=== PATIENT | female | born 1965 | race African-American/Black ===

== ENCOUNTER 2016-06-18 15:04 | Emergency (ER) | payer OTHER ==
[~2016-06-18] VITALS: Ht 177.8 cm; Wt 80.0 kg
[2016-06-18] MEDS ORDERED: ALBUTEROL 0.5% (NEB) 2.5 MG/0.5 ML AMP HHN STA (15:07)
[2016-06-18] MEDS ORDERED: CEFTRIAXONE 1 GM/50 ML (PMX) 50 ML IVPB STA (15:07)
[2016-06-18 15:11] VITALS: Ht 177.8 cm; Wt 80.0 kg
[2016-06-18] MEDS ORDERED: IPRATROPIUM (NEB) 0.5 MG/2.5 ML AMP HHN ONE (15:30)
[2016-06-18 15:46] LABS: HEMATOCRIT 35.1 % (37.0-47.0); HEMOGLOBIN 11.9 g/dl (12.0-16.0); MEAN CORPUSCULAR HEMOGLOBIN 31.9 pg (29.0-33.0); MEAN CORPUSCULAR HGB CONC 33.8 g/dl (32.0-37.0); MEAN CORPUSCULAR VOLUME 94.4 fl (82.0-101.0); MEAN PLATELET VOLUME 8.3 fl (7.4-10.4); PLATELET COUNT 288 10^3/UL (140-440); RED BLOOD COUNT 3.72 10^6/ul (4.20-5.40); RED CELL DISTRIBUTION WIDTH 14.1 % (11.5-14.5); UNCORRECTED WBC 4.3 10^3/ul (4.8-10.8); WHITE BLOOD COUNT 4.3 10^3/ul (4.8-10.8)
--- NOTE | 2016-06-18 15:46 | RADRPT ---
PROCEDURE: XR Chest. CLINICAL INDICATION: Chest pain TECHNIQUE: AP view of the chest was performed. COMPARISON: None. FINDINGS: Increased interstitial markings in the bilateral lung bases without evidence for focal consolidation . The lung volumes are normal. The heart size is normal. There are chronic fractures of the left inferior posterior ribs with bridging callous formation. The osseous structures are otherwise intact . IMPRESSION: Increased interstitial markings in the bilateral lung bases. Chronic fractures of the left posterior ribs, inferiorly RPTAT: QQ .Maya Sam MD, Date Time Electronically viewed and signed by .Maya Sam MD, on 06/18/2016 15:46 .M/
[2016-06-18 15:54] LABS: CHLORIDE 107 mmol/L (97-110)
[2016-06-18 15:55] LABS: POTASSIUM 4.4 mmol/L (3.5-5.1); SODIUM 147 mmol/L (135-144)
[2016-06-18 15:56] LABS: CONDITION 1
[2016-06-18 15:57] LABS: ALBUMIN/GLOBULIN RATIO 0.95; ANION GAP 18 (8-16); ASPARTATE AMINO TRANSFERASE 31 IU/L (15-46); BILIRUBIN,INDIRECT 0.1 mg/dl (0-1.1); BILIRUBIN,TOTAL 0.1 mg/dl (0.2-1.3); BLOOD UREA NITROGEN 25 mg/dl (7-20); CARBON DIOXIDE 26 mmol/L (21-31); CREATININE 0.73 mg/dl (0.44-1.00); TOTAL PROTEIN 8.2 g/dl (6.1-8.1)
[2016-06-18 15:58] LABS: ALANINE AMINOTRANSFERASE 22 IU/L (13-69); ALKALINE PHOSPHATASE 72 IU/L (42-121); CALCIUM 8.9 mg/dl (8.4-10.2); GLUCOSE 91 mg/dl (70-220)
[2016-06-18 16:10] LABS: TROPONIN-I < 0.012 ng/ml (0.00-0.12)
[2016-06-18 16:18] LABS: EOSINOPHILS # 0.1 10^3/ul (0.0-0.5); LYMPHOCYTES # 1.7 10^3/ul (0.8-2.9); MONOCYTE # 0.5 10^3/ul (0.3-0.9); NEUTROPHIL # 1.9 10^3/ul (1.6-7.5)
[2016-06-18 16:32] LABS: INR 0.93; PROTIME 12.5 Sec (12.2-14.2)
[2016-06-18 16:33] LABS: PARTIAL THROMBOPLASTIN TIME 39.1 Sec (25.0-35.0)
[2016-06-18] MEDS ORDERED: ASPI-664 PO (16:49)
[2016-06-18] MEDS ORDERED: NAPR-260 PO (16:50)
[2016-06-18] MEDS ORDERED: TRAM-40 PO (16:51)
[2016-06-18] MEDS ORDERED: HYDR-906 PO (16:51)
[2016-06-18] MEDS ORDERED: CARB400T PO (16:52)
[2016-06-18] MEDS ORDERED: GABA300C16 PO (16:52)
[2016-06-18] MEDS ORDERED: ALBU18HF INHALATION (17:18)
[2016-06-18] MEDS ORDERED: FLUC150T41 PO (17:18)
[2016-06-18] MEDS ORDERED: LEVO500T72 PO (17:18)
[2016-06-18] MEDS ORDERED: TRAM50TA2 PO (17:18)
[2016-06-18] MEDS ORDERED: UDROBDM PO (17:18)
[2016-06-18] MEDS ORDERED: FLUCONAZOLE 150 MG TAB PO ONE (17:30)
--- NOTE | 2016-06-18 17:36 | ERD ---
ER Documentation Chief Complaint Date/Time DATE: 06/18/16 TIME: 17:29 Chief Complaint BIBA FOR SOB,COUGH,HISTORY OF ASTHMA HPI This 50-year-old female presents the ER for cough and congestion going on for 3 days. She has a history of asthma. She states that she lives in a home that has mold in the basement. She has talked to her landlord about this. She denies fevers and chills. States the last time she coughed she had some blood- streaked in her sputum. This was the first time that had occurred. ROS All systems reviewed and are negative except as per history of present illness. Medications Home Meds Active Scripts Albuterol Sulfate* (Ventolin HFA*) 18 Gm Hfa.aer.ad, 2 PUFF INHALATION Q4H, #1 INHALER Prov:FIDEL HUMPHREYS 06/18/16 Tramadol HCl (Tramadol HCl) 50 Mg Tablet, 50 MG PO Q6 Y for PAIN, #12 TAB Prov:PETRFIDEL DO 06/18/16 Fluconazole* (Fluconazole*) 150 Mg Tablet, 150 MG PO ONCE, #1 TAB Prov:PETRFIDEL 06/18/16 Guaifenesin-Dextromethorphan* (Robitussin* DM) 100MG/10MG/5ML Syrup, 5 ML PO Q6H Y for coug, #100 ML Prov:FIDEL HUMPHREYS 06/18/16 Levofloxacin* (Levaquin*) 500 Mg Tablet, 500 MG PO DAILY for 7 Days, TAB Prov:PETRFIDEL DO 06/18/16 Reported Medications Gabapentin* (Gabapentin*) 300 Mg Capsule, 300 MG PO QHS, #60 CAP 06/18/16 Carbamazepine* (Tegretol Xr*) 400 Mg Tab.sr.12h, 400 MG PO Q12, TAB.SA 06/18/16 Tramadol Hcl* (Ultram*) 50 Mg Tablet, 50 MG PO Q6H Y for PAIN, TAB 06/18/16 Hydrocodone/Acetaminophen ([place] 5-325 Tablet) 1 Each Tablet, 1 EACH PO DAILY Y for BREAKTHROUGH PAIN, TAB 06/18/16 Naproxen* (Naprosyn*) 500 Mg Tablet, 500 MG PO BID, TAB 06/18/16 Aspirin (Low Dose Aspirin) 81 Mg Tablet.dr, 81 MG PO DAILY, #30 TAB 06/18/16 Allergies Allergies: Coded Allergies: No Known Allergy (Unverified , 06/18/16) PMhx/Soc History of Surgery: Yes (RIGHT LEG SX) Anesthesia Reaction: No Hx Neurological Disorder: No Hx Respiratory Disorders: Yes (ASTHMA) Hx Cardiac Disorders: No Hx Psychiatric Problems: No Hx Miscellaneous Medical Probl: No Hx Alcohol Use: No Hx Substance Use: No Hx Tobacco Use: No Smoking Status: Never smoker Physical Exam Vitals Vital Signs Date Time Temp Pulse Resp B/P Pulse Ox O2 Delivery O2 Flow Rate FiO2 06/18/16 15:20 2.0 06/18/16 15:20 87 20 97 Nasal Cannula 2.0 06/18/16 15: Nasal Cannula 2 06/18/16 15: Nasal Cannula 2.0 06/18/16 15:11 97.9 82 24 133/75 98 Physical Exam Const: [] No distress Head: Atraumatic Eyes: Normal Conjunctiva ENT: Normal External Ears, Nose and Mouth. Neck: Full range of motion..~ No meningismus. Resp: Mild bilateral rhonchi, no wheezes or rales. Cardio: Regular rate and rhythm, no murmurs Abd: Soft, non tender, non distended. Normal bowel sounds Skin: No petechiae or rashes Back: No midline or flank tenderness Ext: No cyanosis, or edema Neur: Awake and alert and oriented 3, no focal deficits Psych: Normal Mood and Affect Result Diagram: 06/18/16 1519 06/18/16 1519 Results 24 hrs Laboratory Tests Test 06/18/16 15:19 06/18/16 15:40 Alanine Aminotransferase (ALT/SGPT) 22IU/L Albumin 4.0g/dl Albumin/Globulin Ratio 0.95 Alkaline Phosphatase 72IU/L Anion Gap 18 Aspartate Amino Transf (AST/SGOT) 31IU/L Band Neutrophils % 1.0% Blood Urea Nitrogen 25mg/dl Calcium Level 8.9mg/dl Carbon Dioxide Level 26mmol/L Chloride Level 107mmol/L Creatinine 0.73mg/dl Direct Bilirubin 0.00mg/dl Eosinophils # 0.110^3/ul Eosinophils % 2.0% Globulin 4.20g/dl Glucose Level 91mg/dl Hematocrit 35.1% Hemoglobin 11.9g/dl Indirect Bilirubin 0.1mg/dl Lactic Acid Level 0.9mmol/L Lymphocytes # 1.710^3/ul Lymphocytes % 39.0% Mean Corpuscular Hemoglobin 31.9pg Mean Corpuscular Hemoglobin Concent 33.8g/dl Mean Corpuscular Volume 94.4fl Mean Platelet Volume 8.3fl Monocytes # 0.510^3/ul Monocytes % 12.0% Neutrophils # 1.910^3/ul Neutrophils % 44.0% Nucleated Red Blood Cells # 10^3/ul Nucleated Red Blood Cells % /100WBC Platelet Count 14176^3/UL Potassium Level 4.4mmol/L Reactive Lymphocytes % 2.0% Red Blood Count 3.7210^6/ul Red Cell Distribution Width 14.1% Sodium Level 147mmol/L Total Bilirubin 0.1mg/dl Total Protein 8.2g/dl Troponin I < 0.012ng/ml White Blood Count 4.310^3/ul Activated Partial Thromboplast Time 39.1Sec INR International Normalized Ratio 0.93 Prothrombin Time 12.5Sec Prothrombin Time Ratio 1.0 Current Medications Medications (Trade) Dose Ordered Sig/Joanna Route PRN Reason Start Time Stop Time Status Last Admin Dose Admin Ceftriaxone Sodium (Rocephin) 50 ml @ 100 mls/hr ONCE STAT IVPB 06/18/16 15:07 06/18/16 15:36 DC 06/18/16 15:43 Albuterol (Proventil 0.5% (Neb)) 5 mg ONCE STAT HHN 06/18/16 15:07 06/18/16 15:10 DC 06/18/16 15:19 Ipratropium Dim[place] (Atrovent 0.02% (Neb)) 0.5 mg ONCE ONCE HHN 06/18/16 15:30 06/18/16 15:31 DC 06/18/16 15:19 Fluconazole (Diflucan) 150 mg ONCE ONCE PO 06/18/16 17:30 06/18/16 17:31 Procedures/MDM Patient with likely bronchitis. Does not have an elevated white count actually has a slightly decreased white blood cell count indicating possible viral suppression. However she is a smoker. After single breathing treatment she felt much better. She has a normal chest x-ray and I doubt acute coronary syndrome or congestive heart failure she has a nonischemic EKG and negative troponin and appears to be asymptomatic currently. I am going to discharge her with Levaquin 7 day course for likely bronchitis in a smoker. Counseled at bedside for greater than 4 minutes on smoking cessation. She knows that she should quit and recently did quit but relapsed. She also states that she thinks she has a yeast infection would like something for it. She was given a Diflucan tab. Muscular sent home with Diflucan tablet as well as albuterol inhaler and naproxen for pain she requests a refill for tramadol and [place]. I am going to give her a few tramadol pills. Most of her guiding her primary care follow-up and instructed him to see her the next day or 2. Return precautions were given. EKG interpretation: Normal sinus rhythm rate of 72, normal axis, no ST or T- wave changes concerning for acute ischemia, QT of 466 Chest x-ray interpretation: I see no acute process, no infiltrate, no pneumothorax no widened mediastinum, no acute fractures Departure Diagnosis: Primary Impression: Bronchitis, acute Additional Impression: Shortness of breath Condition: Stable Patient Instructions: Bronchitis, Antiobiotic Treatment (Adult), Smoking Cessation Referrals: [facility] YOU HAVE RECEIVED A MEDICAL SCREENING EXAM AND THE RESULTS INDICATE THAT YOU DO NOT HAVE A CONDITION THAT REQUIRES URGENT TREATMENT IN THE EMERGENCY DEPARTMENT. FURTHER EVALUATION AND TREATMENT OF YOUR CONDITION CAN WAIT UNTIL YOU ARE SEEN IN YOUR DOCTORS OFFICE WITHIN THE NEXT 1-2 DAYS. IT IS YOUR RESPONSIBILITY TO MAKE AN APPOINTMENT FOR FOLOW-UP CARE. IF YOU HAVE A PRIMARY DOCTOR --you should call your primary doctor and schedule an appointment IF YOU DO NOT HAVE A PRIMARY DOCTOR YOU CAN CALL OUR PHYSICIAN REFERRAL HOTLINE AT IF YOU CAN NOT AFFORD TO SEE A PHYSICIAN YOU CAN CHOSE FROM THE FOLLOWING [facility] [address] [facility] [address] [facility] [address] [facility]. [facility] [address] [facility]. [facility] [address] [facility]. [facility]. [address] [facility]. [facility] YOU HAVE RECEIVED A MEDICAL SCREENING EXAM AND THE RESULTS INDICATE THAT YOU DO NOT HAVE A CONDITION THAT REQUIRES URGENT TREATMENT IN THE EMERGENCY DEPARTMENT. FURTHER EVALUATION AND TREATMENT OF YOUR CONDITION CAN WAIT UNTIL YOU ARE SEEN IN YOUR DOCTORS OFFICE WITHIN THE NEXT 1-2 DAYS. IT IS YOUR RESPONSIBILITY TO MAKE AN APPOINTMENT FOR FOLOW-UP CARE. IF YOU HAVE A PRIMARY DOCTOR --you should call your primary doctor and schedule and appointment IF YOU DO NOT HAVE A PRIMARY DOCTOR YOU CAN CALL OUR PHYSICIAN REFERRAL HOTLINE AT . IF YOU CAN NOT AFFORD TO SEE A PHYSICIAN YOU CAN CHOSE FROM THE FOLLOWING [facility] INSTITUTIONS: [facility] [address] [place] [address] [facility] [address] [place], [place] [id number] [place] [address] [address] [place] [address] [facility] URGENT CARE/SPECIALTIES Additional Instructions: Call your primary care doctor TOMORROW for an appointment during the next 1-2 days.See the doctor sooner or return here if your condition worsens before your appointment time. FIDEL HUMPHREYS DO Jun 18, 2016 17:36
[2016-06-18 17:41] VITALS: BP 123/78; PULSE 78; RESP 18; TEMP 98.1
== END 2016-06-18 18:01 | disposition home or self-care (01) ==
LOC: E/R 15:04
DX: J20.9 Acute bronchitis, unspecified (principal); J45.901 Unspecified asthma with (acute) exacerbation; Z79.82 Long term (current) use of aspirin
CPT/HCPCS: 71010; 80053; 83605; 84484; 85025; 85610; 85730; 93005; 94664; J0696; Z7610; 36415; 96374

== ENCOUNTER 2018-05-05 08:51 | Emergency (ER) | END 2018-05-05 12:04 | disposition home or self-care (01) ==

== ENCOUNTER 2018-07-16 11:43 | Emergency (ER) | payer SELFPAY ==
[~2018-07-16] VITALS: Ht 177.8 cm; Wt 90.0 kg
[~2018-07-16 11:43] MED LIST: ALBU18HF INHALATION; ASPI81TA52 PO; CARB400T PO; CEPH-443 PO; FLUC150T41 PO; GABA300C16 PO; GUAI5SYR2 PO; HYDR-4011 PO; LEVO500T48 PO; NAPR-985 PO; SULF1TAB31 PO; TRAM50TA PO; TRAM50TA2 PO
[2018-07-16 11:44] VITALS: BP 140/80; PULSE 88; RESP 18; Ht 177.8 cm; Wt 90.0 kg
== END 2018-07-16 13:17 | disposition left against medical advice (07) ==
LOC: FTE 11:43
DX: Z53.21 Procedure and treatment not carried out due to patient leaving prior to being seen by health care provider (principal)